=== PATIENT | female | born 1955 | race Caucasian/White ===

== ENCOUNTER → 2020-07-25 | Outpatient (CLI) | payer MEDICARE ==
[~2020-07-25] MED LIST: ASPIRIN CHEWABL81 MG PO; CELEBREX 200MG200 MG PO; COZAAR100 MG PO; LAMICTAL100 MG PO; MS CONTIN30 MG PO; NORVASC 5 MG TAB5 MG PO; PERCOCET 10-321 EACH PO; ROBAXIN500 MG PO; TYLENOL PM EX-1 EACH PO; VITAMIN D250000 UNIT PO
== END ==
LOC: MRI 12:16
DX: M51.36 Other intervertebral disc degeneration, lumbar region (principal); M51.26 Other intervertebral disc displacement, lumbar region; M48.061 Spinal stenosis, lumbar region without neurogenic claudication; M47.816 Spondylosis without myelopathy or radiculopathy, lumbar region; M47.817 Spondylosis without myelopathy or radiculopathy, lumbosacral region; M51.27 Other intervertebral disc displacement, lumbosacral region
CPT/HCPCS: 36415; 72158; 82565; 84520; A9577

== ENCOUNTER → 2021-05-06 | Outpatient (CLI) | payer MEDICARE | LOC: MRI 14:43 | DX: M25.562 Pain in left knee (principal); M89.9 Disorder of bone, unspecified; M17.12 Unilateral primary osteoarthritis, left knee; R60.0 Localized edema | CPT/HCPCS: 73721 ==